=== PATIENT | female | born 1995 | race Caucasian/White ===

== ENCOUNTER 2019-07-27 13:18 | Emergency (ER) | payer OTHER ==
[~2019-07-27] VITALS: Ht 172.7 cm; Wt 60.0 kg
--- NOTE | 2019-07-27 19:37 | NUR ---
FROM LOBBY TO ROOM AT THIS TIME. PT PRESENTING TO ER FOR CONTINUOUS STERNAL CP AND RIGHT RIB PAIN X1 WEEK. PT STATES BREATHING AGGRIVATED IT, WORSE IN THE MORNING. PIT ORDERS COMPLETED. MOTHER AT BEDSIDE. CALL LIGHT WITHIN REACH. AWAITING MD ASSESSMENT AND FURTHER ORDERS
[2019-07-27 19:46] VITALS: BP 119/76
--- NOTE | 2019-07-27 20:03 | NUR ---
MD TO BEDSIDE AT THIS TIME, AWAITING FURTHER ORDERS
--- NOTE | 2019-07-27 20:07 | NUR ---
MD AT BEDSIDE WITH US TO ASSESS GALLBLADDER
== END 2019-07-27 20:31 | disposition home or self-care (01) ==
LOC: ED 20:20
DX: R07.2 Precordial pain (principal); R07.1 Chest pain on breathing
CPT/HCPCS: 71046; 93005; 99283